=== PATIENT | female | born 1945 | race Caucasian/White ===

== ENCOUNTER 2023-05-01 12:47 | Emergency (ER) | payer MEDICARE, MEDICAID ==
[~2023-05-01] VITALS: Ht 167.6 cm; Wt 81.0 kg
[2023-05-01 13:03] VITALS: O2SAT 99
[2023-05-01 18:24] LABS: BASOPHILS % 0.6 % (0.0-2.0); HEMATOCRIT. 42.6 % (36.0-48.0); HEMOGLOBIN. 13.7 g/dL (12.0-16.0); MEAN CORPUSCULAR HEMOGLOBIN 26.5 pg (28.0-32.0); MEAN CORPUSCULAR HGB CONC 32.2 g/dL (31.0-37.0); MEAN CORPUSCULAR VOLUME 82.2 fL (81.0-99.0); MEAN PLATELET VOLUME 8.8 fl (7.4-10.4); MONOCYTES % 4.5 % (2.0-8.0); NEUTROPHILS % 63.9 % (40.0-76.0); PLATELET 235 x1000/uL (130-400); RED BLOOD CELL COUNT 5.18 mill/uL (4.2-5.4); RED CELL DISTRIBUTION WIDTH 17.1 % (11.6-14.6); WHITE BLOOD COUNT 9.8 x1000/uL (4.5-11.0)
[2023-05-01 19:15] VITALS: BP 138/82; PULSE 99; RESP 18; TEMP 98.6
== END 2023-05-01 19:18 | disposition home or self-care (01) ==
LOC: ER 15:45
DX: S40.021A Contusion of right upper arm, initial encounter (principal); E11.9 Type 2 diabetes mellitus without complications; I10 Essential (primary) hypertension; X58.XXXA Exposure to other specified factors, initial encounter; Y93.89 Activity, other specified; Y92.89 Other specified places as the place of occurrence of the external cause; Y99.8 Other external cause status
CPT/HCPCS: 36415; 85025; 99283

== ENCOUNTER 2024-02-20 03:32 | Emergency (ER) | payer MEDICARE, MEDICAID ==
[2024-02-20 05:00] VITALS: TEMP 36.61404
[2024-02-20] MEDS: ACETAMINOPHEN 325MG TABLET PO ONE (05:00)
[2024-02-20 05:01] VITALS: BP 159/71; PULSE 88; RESP 18; O2SAT 98
[2024-02-20] MEDS: LIDOCAINE 5% PATCH TOP SCH (05:26)
[2024-02-20] MEDS ORDERED: ACET-2708 MT (05:45)
[2024-02-20] MEDS ORDERED: LIDO700A15 TP (05:45)
== END 2024-02-20 07:24 | disposition home or self-care (01) ==
LOC: ER 03:32
DX: S16.1XXA Strain of muscle, fascia and tendon at neck level, initial encounter (principal); R51.9 Headache, unspecified; E11.9 Type 2 diabetes mellitus without complications; E78.00 Pure hypercholesterolemia, unspecified; X58.XXXA Exposure to other specified factors, initial encounter; Y93.89 Activity, other specified; Y92.89 Other specified places as the place of occurrence of the external cause; Y99.8 Other external cause status
CPT/HCPCS: 99284